=== PATIENT | male | born 1980 | race Caucasian/White ===

== ENCOUNTER 2017-05-22 23:25 | Emergency (ER) | payer SELFPAY ==
[~2017-05-22] VITALS: Ht 193 cm; Wt 90.7 kg
--- NOTE | ~2017-05-22 | CT2 ---
[facility] A Service of [facility] RADIOLOGY TEXT RESULTS PATIENT: JESSICA TERESA LOCATION: SED : 76 UNIT #: [id number] AGE: [address]: Chemo Espinosa MD SEX: M ORDER DR: [id number] [address] [address] [id number] E MR#: [id number] Acc #: [id number] NAME: JESSICA TERESA : 1980 SEX: M STUDY DATE/TIME: 05/23/2017 1:15 UNIT: SED ROOM: STUDY DESCRIPTION: CT Abd and Pelv W Cont Attending Physician: Chemo Espinosa M.D. Ordering Physician: Tao Meier P.A.-C. Primary Care Physician: Primary Care Physician No MEDICAL IMAGING REPORT This report is preliminary unless electronic signature is present. EXAM CT abdomen and pelvis with IV contrast HISTORY Left flank pain for [address] exam was performed with one or more of the following radiation dose reduction techniques: automatic exposure control, adjustment of mA and/or kV according to patient size, and iterative reconstruction. FINDINGS CT abdomen and pelvis was performed with IV contrast. CT ABDOMEN: The liver is unremarkable. Gallbladder is contracted. Mild splenic enlargement measuring 15.0 cm in length. The pancreas, kidneys, and adrenal glands are unremarkable. Normal caliber abdominal aorta. No ascites. No bowel dilatation. Moderately large amount of stool throughout the colon. CT PELVIS: No free fluid. Mild prostatic enlargement. Urinary bladder is normal. No bowel dilatation. IMPRESSION 1. Moderate amount of stool throughout the colon. 2. No free fluid or inflammatory changes. 3. No urinary obstruction. 4. Mild splenic enlargement. Dictated by... Naresh Veliz M.D. [facility] A Service of [facility] RADIOLOGY TEXT RESULTS PATIENT: JESSICA TERESA LOCATION: SED : 76 UNIT #: [id number] AGE: [address]: Chemo Espinosa MD SEX: M ORDER DR: THIS IS AN ELECTRONICALLY VERIFIED REPORT Naresh Bishnu Veliz M.D. at 05/24/2017 4:17 AM Aletha TD: 05/23/2017 09:02 JOB #: [id number] MEDICAL IMAGING REPORT Page 1 of 1
[2017-05-23 00:23] LABS: BASOPHIL# 0.1 X10e3 (0-0.3); BASOPHIL% 0.6 % (0-2.5); DIFF IND NO; EOSINOPHIL# 0.1 X10e3 (0-0.7); EOSINOPHIL% 0.9 % (0.0-7.0); HEMATOCRIT 39.6 % (38.0-50.0); HEMOGLOBIN 13.4 gm/dL (13.0-16.0); LYMPHOCYTE# 1.3 X10e3 (1.0-3.5); LYMPHOCYTE% 14.1 % (17.0-45.0); MEAN CELL VOLUME 83.8 FL (83-96); MEAN CORPUSCULAR HEMOGLOBIN 28.3 PG (28-34); MEAN CORPUSCULAR HGB CONC 33.7 g/dL (30-36); MEAN PLATELET VOLUME 8.2 FL (6.5-11.5); MONOCYTE% 10.9 % (3.0-12.0); NEUTROPHIL% 73.5 % (40-75); PLATELET COUNT 179 X10e3 (140-420); RED BLOOD COUNT 4.73 X10e (3.90-5.60); RED CELL DISTRIBUTION WIDTH 14.5 % (11.0-15.5); WHITE BLOOD COUNT 9.5 X10e3 (4.0-10.5)
[2017-05-23 00:46] LABS: ALBUMIN SERUM 3.5 g/dL (3.5-5.0); BILIRUBIN, DIRECT 0.2 mg/dL (0.0-0.2); BILIRUBIN,INDIRECT 0.5 mg/dL (0.0-0.9); BILIRUBIN,TOTAL 0.7 mg/dL (0.2-2.0); BUN/CREATININE RATIO 10.9; CALCIUM SERUM 8.4 mg/dL (8.4-10.2); CREATININE SERUM 1.1 mg/dL (0.6-1.4); GLOM FILT RATE Estimated 84.1 mL/min (>60); PROTEIN TOTAL SERUM 6.8 g/dL (6.0-8.3)
[2017-05-23 00:51] LABS: POTASSIUM 2.9 mmol/L (3.5-5.1)
[2017-05-23 02:37] LABS: URINE SOURCE CLEAN CATCH
[2017-05-23 02:45] LABS: URINE APPEARANCE CLEAR; URINE BILIRUBIN NEG (NEG); URINE BLOOD NEG (NEG); URINE COLOR YELLOW; URINE GLUCOSE NEG (NORM); URINE KETONE NEG (NEG); URINE LEUKOCYTE ESTERASE NEG (NEG); URINE NITRATE NEG (NEG); URINE PH 6.5 (5-8); URINE PROTEIN TRACE (NEG); URINE UROBILINOGEN >=8.0 MG/DL (NORM)
[2017-05-23 02:46] LABS: MICRO INDICATED? NO
[2017-05-23 02:57] LABS: AMPHETAMINE POS (NEG); BARBITURATES NEG (NEG); BENZODIAZEPINES POS (NEG); COCAINE NEG (NEG); MARIJUANA NEG (NEG); OPIATES NEG (NEG); TRICYCLIC ANTIDEPRESSANTS NEG (NEG); U METHADONE NEG (NEG)
== END 2017-05-23 03:05 | disposition home or self-care (01) ==
LOC: SED 23:25
PROVIDERS: Physician Assistant
DX: K59.00 Constipation, unspecified (principal); F17.210 Nicotine dependence, cigarettes, uncomplicated
CPT/HCPCS: 36415; 74177; 80048; 80076; 80307; 81003; 83690; 85025; 96360; 99284; Q9967

== ENCOUNTER 2017-05-25 22:57 | Emergency (ER) | payer SELFPAY ==
[~2017-05-25] VITALS: Ht 193 cm; Wt 90.7 kg
== END 2017-05-26 02:36 | disposition home or self-care (01) ==
LOC: CED 22:57
DX: K59.00 Constipation, unspecified (principal); F17.210 Nicotine dependence, cigarettes, uncomplicated
CPT/HCPCS: 99284

== ENCOUNTER 2017-05-28 12:36 | Emergency (ER) | payer SELFPAY ==
[~2017-05-28] VITALS: Ht 193 cm; Wt 90.7 kg
--- NOTE | ~2017-05-28 | CR2 ---
[facility] A Service of [facility] RADIOLOGY TEXT RESULTS PATIENT: JESSICA TERESA LOCATION: SED : 76 UNIT #: [id number] AGE: [address]: Wilber Stark MD SEX: M ORDER DR: [id number] [place] [id number] E MR#: [id number] Acc #: [id number] NAME: JESSICA TERESA : 1980 SEX: M STUDY DATE/TIME: 05/28/2017 13:34 UNIT: SED ROOM: STUDY DESCRIPTION: CR Abdomen Acute Series Attending Physician: Wilber Stark M.D. Ordering Physician: Wilber Stark M.D. Primary Care Physician: No Primary Care Physician MEDICAL IMAGING REPORT This report is preliminary unless electronic signature is present. EXAM Acute abdomen series, 4 views, 05/28/2017. HISTORY Abdominal pain and constipation for 3 weeks. No bowel movement for 3 weeks. FINDINGS Four views of the chest and abdomen demonstrate mild gaseous distension of the small and large bowel which appears fairly diffuse suggesting ileus. There is a large amount of fecal matter in the ascending and proximal transverse colon. There are no abnormal abdominal calcifications. There is degenerative change and scoliosis of the lumbar spine. Single view of the chest is normal. IMPRESSION 1. Gaseous distension of the small and large bowel appears diffuse suggesting ileus. Large amount of fecal matter in the ascending and proximal transverse colon. 2. Scoliosis of the lumbar spine. 3. No active pulmonary disease. Dictated by... Earle Thomson M.D. THIS IS AN ELECTRONICALLY VERIFIED REPORT Earle Thomson M.D. at 05/29/2017 6:38 AM PAYAM/diony TD: 05/28/2017 17:08 [facility] A Service [facility] RADIOLOGY TEXT RESULTS PATIENT: JESSICA TERESA LOCATION: SED : 76 UNIT #: [id number] AGE: [address]: Wilber Stark MD SEX: M ORDER DR: JOB #: [id number] MEDICAL IMAGING REPORT Page 1 of 1
== END 2017-05-28 15:00 | disposition home or self-care (01) ==
LOC: SED 12:36
DX: K56.7 Ileus, unspecified (principal); K59.00 Constipation, unspecified; F17.200 Nicotine dependence, unspecified, uncomplicated
CPT/HCPCS: 74022; 99284